=== PATIENT | female | born 1985 | race Caucasian/White ===

== ENCOUNTER → 2016-09-02 | Outpatient (REF) | payer OTHER, MEDICAID | LOC: M SFHCLERA 09:36 | PROVIDERS: ATTEND Nurse Practitioner Family | DX: J02.9 Acute pharyngitis, unspecified (principal) ==

== ENCOUNTER 2016-09-29 04:19 | Emergency (ER) | payer OTHER, MEDICAID ==
[~2016-09-29] VITALS: Ht 152.4 cm; Wt 49.9 kg
[2016-09-29] MEDS ORDERED: XANA2TAB2 PO (04:43)
[2016-09-29] MEDS ORDERED: PROZ20CA11 PO (04:43)
[2016-09-29] MEDS ORDERED: IBUPROFEN 800 MG TAB PO ONE (05:15)
--- NOTE | 2016-09-29 05:40 | REPUSA ---
CLINICAL HISTORY: Head trauma. TECHNIQUE: Multiple axial brain CT scan sections were obtained from base to vertex without contrast a dministration. COMMENTS: There is no evidence of skull fracture. The study shows normal configuration of sella turcica. There are no intra or extra-axial collections. There is no mass effect or midline shift. There is no evidence of hematoma formation. No hydrocephal us is present. No abnormal calcifications are noted. No significant abnormalities are seen either in the posterior fossa or supratentorial compartment. Chronic mucosal inflammatory changes of the right frontal sinus and right anterior ethmoid air cells. The sinuses and mastoid air cells are patent. Right frontal subgaleal soft tissue hematoma. IMPRESSION: Right frontal subgaleal soft tissue contusion. No evidence of acute intracranial pathology. No intracranial hemorrhage or skull fracture. Chronic sinusitis. Thank you for your kind referral of this patient.
--- NOTE | 2016-09-29 06:00 | REPUSA ---
HISTORY: Trauma. COMPARISON: Not provided. TECHNIQUE: Multiple thin section helically-acquired axially-displayed and helically acquired coronall y displayed computed tomographic images of the face are obtained from the mandible through the fronta l sinuses, with images obtained at soft tissue and bone window. 2D reformatted images were performed. FINDINGS: Right preseptal soft tissue hematoma. Normal bony mineralization. No fractures. Normal orbits. Mild chronic mucosal inflammatory changes of the maxillary sinuses and ethmoid air cells. Normal oral and nasal cavities. Normal infratemporal fossa and deep parapharyngeal spaces with normal muscles of mastication. Normal parotid and submandibular glands. IMPRESSION: Right preseptal soft tissue hematoma. No fracture. Thank you for your kind referral of this patient
[2016-09-29] MEDS ORDERED: IBUP80TA PO (06:20)
[2016-09-29 06:29] VITALS: BP 139/78
== END 2016-09-29 06:32 | disposition home or self-care (01) ==
LOC: EDBD 04:19 → M ED 06:07
DX: S00.81XA Abrasion of other part of head, initial encounter (principal); S00.83XA Contusion of other part of head, initial encounter; Y04.8XXA Assault by other bodily force, initial encounter; Y92.89 Other specified places as the place of occurrence of the external cause; Y93.89 Activity, other specified; Y99.8 Other external cause status; Z79.899 Other long term (current) drug therapy; Z88.1 Allergy status to other antibiotic agents; Z88.5 Allergy status to narcotic agent

== ENCOUNTER → 2018-01-29 | Outpatient (REF) | payer MEDICAID | LOC: M SFHCLERA 20:28 | DX: J02.9 Acute pharyngitis, unspecified (principal) ==

== ENCOUNTER → 2018-04-11 | Outpatient (REF) | LOC: M LAB REF 14:54 | DX: Z00.00 Encounter for general adult medical examination without abnormal findings (principal) ==

== ENCOUNTER → 2018-04-23 | Outpatient (CLI) | payer MEDICAID | LOC: M RAD 13:17 | DX: Z34.83 Encounter for supervision of other normal pregnancy, third trimester (principal); Z36.89 Encounter for other specified antenatal screening; Z3A.29 29 weeks gestation of pregnancy | CPT/HCPCS: 76820 ==

== ENCOUNTER → 2018-05-07 | Outpatient (CLI) | payer MEDICAID | LOC: M RAD 12:31 | DX: Z36.89 Encounter for other specified antenatal screening (principal); Z3A.31 31 weeks gestation of pregnancy | CPT/HCPCS: 76816 ==

== ENCOUNTER → 2018-05-28 | Outpatient (CLI) | payer SELFPAY, MEDICAID | LOC: M LDO 00:39 | DX: O26.893 Other specified pregnancy related conditions, third trimester (principal); O47.03 False labor before 37 completed weeks of gestation, third trimester; Z3A.35 35 weeks gestation of pregnancy | CPT/HCPCS: 59025 ==

== ENCOUNTER → 2018-06-05 | Outpatient (REF) | payer MEDICAID | LOC: M LAB REF 17:03 | DX: Z34.83 Encounter for supervision of other normal pregnancy, third trimester (principal) ==

== ENCOUNTER 2018-06-07 02:03 | Outpatient (CLI) | payer MEDICAID ==
[2018-06-07 03:31] LABS: AMPHETAMINES URINE REFLEX NEGATIVE (NEGATIVE); BARBITURATES URINE REFLEX NEGATIVE (NEGATIVE); CANNABINOIDS URINE REFLEX NEGATIVE (NEGATIVE); COCAINE METABOLITE URINE REFLE NEGATIVE (NEGATIVE); METHADONE URINE REFLEX NEGATIVE (NEGATIVE); OPIATES URINE REFLEX NEGATIVE (NEGATIVE); PHENCYCLIDINE URINE REFLEX NEGATIVE (NEGATIVE)
[2018-06-07 03:39] LABS: BENZODIAZEPINES URINE REFLEX PENDING CONFIRMATION (NEGATIVE)
[2018-06-11 00:39] LABS: Benzodiazepines Negative (Cutoff=300)
== END 2018-06-07 03:00 | disposition home or self-care (01) ==
LOC: M LDO 02:03
DX: O47.03 False labor before 37 completed weeks of gestation, third trimester (principal); Z3A.36 36 weeks gestation of pregnancy
CPT/HCPCS: 59025

== ENCOUNTER 2018-06-12 19:23 | Outpatient (CLI) | payer MEDICAID | END 2018-06-12 22:15 | disposition home or self-care (01) | LOC: M LDO 19:23 | DX: O47.1 False labor at or after 37 completed weeks of gestation (principal); Z3A.37 37 weeks gestation of pregnancy | CPT/HCPCS: 59025 ==

== ENCOUNTER 2018-06-22 14:47 | Inpatient (IN) | payer OTHER, MEDICAID ==
[2018-06-22 16:50] LABS: HEMOGLOBIN 9.8 g/dl (12.0-15.5); MEAN CORPUSCULAR HEMOGLOBIN 25.2 pg (27.0-33.0); MEAN CORPUSCULAR HGB CONC 31.6 g/dl (32.0-36.5); MEAN CORPUSCULAR VOLUME 79.7 fl (80.0-96.0); PLATELET COUNT, AUTOMATED 270 10^3/uL (150-450); RED BLOOD COUNT 3.89 10^6/uL (4.00-5.40); RED CELL DISTRIBUTION WIDTH 14.6 % (11.5-14.5)
[2018-06-22 16:55] LABS: AMPHETAMINES URINE REFLEX NEGATIVE (NEGATIVE); BARBITURATES URINE REFLEX NEGATIVE (NEGATIVE); CANNABINOIDS URINE REFLEX NEGATIVE (NEGATIVE); COCAINE METABOLITE URINE REFLE NEGATIVE (NEGATIVE); METHADONE URINE REFLEX NEGATIVE (NEGATIVE); OPIATES URINE REFLEX NEGATIVE (NEGATIVE); PHENCYCLIDINE URINE REFLEX NEGATIVE (NEGATIVE)
[2018-06-22] MEDS: LR 1,000 ML IV ×2 (16:56→18:05)
[2018-06-22 16:59] LABS: BENZODIAZEPINES URINE REFLEX PENDING CONFIRMATION (NEGATIVE)
[2018-06-22] MEDS ORDERED: FENTANYL 2MCG/ML ROPIVACAINE 0.2% IN 0.9% NACL 200ML IVBAG As Ordered (17:28)
[2018-06-22] MEDS: FENTANYL/ROPIVACAINE/NACL BAG 200 ML EPIDURAL (18:00)
[2018-06-22] MEDS: OXYTOCIN DRIP 30 UNITS in APPROPRIATE DILUENT 1 EA IV (18:21)
[2018-06-22] MEDS ORDERED: REFRIGERATOR IV KEYS XX (19:00)
[2018-06-22] MEDS ORDERED: ONDANSETRON 4MG/2ML VIAL (J2405) IV (19:00)
[2018-06-22] MEDS ORDERED: ePHEDrine SULFATE 25 MG/5 ML(5MG/ML) SYRINGE IV (19:00)
[2018-06-22] MEDS ORDERED: EPIDURAL/PCA KEYS XX (19:00)
[2018-06-22] MEDS ORDERED: NALOXONE INJ 0.4 MG/1 ML VIAL (J2310) IV (19:00)
[2018-06-22] MEDS ORDERED: EPIDURAL COMMENT XX (19:00)
[2018-06-22] MEDS ORDERED: LACTATED RINGER'S 1000 ML IV (19:00)
[2018-06-22] MEDS ORDERED: diphenhydrAMINE INJ 50MG/ML VIAL (J1200) IV (19:00)
[2018-06-22] MEDS: IBUPROFEN 800 MG TAB PO (23:58)
[2018-06-22] MEDS ORDERED: IBUPROFEN 800 MG TAB As Ordered (23:58)
[2018-06-23] MEDS: OXYTOCIN DRIP 30 UNITS in APPROPRIATE DILUENT 1 EA IV (02:11)
[2018-06-23] MEDS ORDERED: RHOGAM 300 MCG (1500 IU) INJ (J2790) IM (02:15)
[2018-06-23] MEDS ORDERED: ANUSOL HC CREAM 30GM TOP (02:15)
[2018-06-23] MEDS ORDERED: DIBUCAINE 1% OINTMENT 30GM TOP (02:15)
[2018-06-23] MEDS ORDERED: METHYLERGONOVINE MALEATE 0.2 MG TAB PO (02:15)
[2018-06-23] MEDS ORDERED: MEASLES,MUMPS,RUBELLA VACCINE INJ (MMR-II) (90707) SC (02:15)
[2018-06-23] MEDS: ACETAMINOPHEN 500 MG TAB PO (06:24)
[2018-06-23 06:56] LABS: ALT/SGPT 9 U/L (12-78); AST/SGOT 18 U/L (7-37); BILIRUBIN,TOTAL 0.3 MG/DL (0.2-1.0); CREATININE FOR GFR 0.52 MG/DL (0.55-1.30); GLOMERULAR FILTRATION RATE > 60.0 (>60); LDH LACTATE DEHYDROGENASE 182 U/L (84-246); URIC ACID 4.4 MG/DL (2.6-6.0)
[2018-06-23] MEDS: PRENATAL VITAMINS CHEWABLE TABLET PO (08:53)
[2018-06-23] MEDS: DOCUSATE SODIUM 100 MG CAP PO (11:37)
[2018-06-23] MEDS: IBUPROFEN 800 MG TAB PO (16:40)
[2018-06-24] MEDS: IBUPROFEN 800 MG TAB PO (00:15)
[2018-06-24] MEDS ORDERED: ADACEL/BOOSTRIX VACCINE (DIPHTH/PERTUSS/ACELL/TETANUS)0.5ML SYR (90715) IM (09:00)
[2018-06-24] MEDS: PRENATAL VITAMINS CHEWABLE TABLET PO (10:34)
[2018-06-27 00:29] LABS: Benzodiazepines Positive (.); GC OH-Alprazola 707 ng/mL (Cutoff=300); Nordiazipam Negative (Cutoff=300); OH-Alprazolam Positive (.)
== END 2018-06-24 15:10 | disposition home or self-care (01) | DRG 560 ==
LOC: M LDI 14:47 → M OBS 06-23 02:26
PROC: 10E0XZZ Delivery of Products of Conception, External Approach (ICD-10-PCS; principal; 2018-06-22)
PROC: 3E033VJ Introduction of Other Hormone into Peripheral Vein, Percutaneous Approach (ICD-10-PCS; 2018-06-22)
DX: O80 Encounter for full-term uncomplicated delivery (principal); Z37.0 Single live birth; Z3A.39 39 weeks gestation of pregnancy

== ENCOUNTER → 2018-09-27 | Outpatient (REF) | payer MEDICAID, OTHER ==
[~2018-09-27] MED LIST: ACET500T15 PO; GUMMCHW PO; IBUP-1114 PO; IBUP80TA PO; MAPA500T2 PO; MULTCAP PO; PRENTAB55 PO; PRENTAB9 PO; PROZ20CA11 PO; SUDA15LI2 PO; XANA2TAB2 PO; ZANTTAB PO
[2018-09-27 22:52] LABS: CHLAMYDIA DNA AMPLIFICATION NEGATIVE (NEGATIVE); GC DNA AMPLIFICATION NEGATIVE (NEGATIVE)
== END ==
LOC: M SFHCLERA 11:12
PROVIDERS: ATTEND Nurse Practitioner Family
DX: R30.0 Dysuria (principal)

== ENCOUNTER 2018-11-26 23:32 | Emergency (ER) | payer OTHER ==
[~2018-11-26] VITALS: Ht 152.4 cm; Wt 43.4 kg
[2018-11-26 23:32] VITALS: BP 147/95
[2018-11-27] MEDS ORDERED: ALPRAZolam 0.5 MG TAB PO ONE
== END 2018-11-27 00:44 | disposition home or self-care (01) ==
LOC: M ED 23:32
DX: Z76.0 Encounter for issue of repeat prescription (principal); F13.10 Sedative, hypnotic or anxiolytic abuse, uncomplicated; Z79.899 Other long term (current) drug therapy; Z88.1 Allergy status to other antibiotic agents; Z88.5 Allergy status to narcotic agent; F17.210 Nicotine dependence, cigarettes, uncomplicated

== ENCOUNTER 2018-11-27 17:31 | Emergency (ER) | payer OTHER ==
[~2018-11-27] VITALS: Ht 152.4 cm; Wt 42.1 kg
[2018-11-27 17:31] VITALS: BP 134/84
== END 2018-11-27 18:53 | disposition left against medical advice (07) ==
LOC: M ED 17:31
DX: F41.9 Anxiety disorder, unspecified (principal); Z53.21 Procedure and treatment not carried out due to patient leaving prior to being seen by health care provider

== ENCOUNTER 2019-02-25 11:03 | Emergency (ER) | payer OTHER ==
[~2019-02-25] VITALS: Ht 154.9 cm; Wt 47.4 kg
[~2019-02-25 11:03] MED LIST changes: -AZIT500T2 PO; -BUTA-198; -PREN29TA4 PO
[2019-02-25] MEDS ORDERED: PREN29TA4 PO (11:16)
[2019-02-25] MEDS ORDERED: BUTA-198 (11:16)
[2019-02-25] MEDS ORDERED: ALPRAZolam 0.5 MG TAB PO ONE (11:45)
[2019-02-25] MEDS ORDERED: AZITHROMYCIN 250 MG TAB PO ONE (11:45)
[2019-02-25] MEDS ORDERED: AZIT500T5 PO (12:01)
[2019-02-25] MEDS ORDERED: XANA2TAB2 PO (12:02)
[2019-02-25 12:07] VITALS: BP 111/63
[2019-04-14] MEDS ORDERED: XANA2TAB2 PO (12:37)
== END 2019-02-25 12:08 | disposition home or self-care (01) ==
LOC: M ED 11:03
DX: O99.712 Diseases of the skin and subcutaneous tissue complicating pregnancy, second trimester (principal); K04.7 Periapical abscess without sinus; O99.342 Other mental disorders complicating pregnancy, second trimester; F41.9 Anxiety disorder, unspecified; O99.322 Drug use complicating pregnancy, second trimester; F13.20 Sedative, hypnotic or anxiolytic dependence, uncomplicated; Z87.891 Personal history of nicotine dependence; Z3A.18 18 weeks gestation of pregnancy; Z88.5 Allergy status to narcotic agent; Z88.1 Allergy status to other antibiotic agents; Z79.899 Other long term (current) drug therapy

== ENCOUNTER → 2019-02-25 | Outpatient (CLI) | payer OTHER ==
[~2019-02-25] MED LIST changes: +AZIT500T2 PO; +BUTA-198; +PREN29TA4 PO; +XANA1TAB2 PO; +ZANT150T40 PO; -ZANTTAB PO
--- NOTE | 2019-02-26 04:38 | REP ---
Clinical: Anatomical evaluation. Comparison: None . Findings: Examination demonstrates a single live intrauterine in variable presentation. motion is identified by technologist. Placenta is noted posterior fundal and grade one without evidence for placenta previa or abruption. Placental venous lakes identified. Amniotic fluid volume is normal. Cervix measures 3.4 cm in length and appears closed. Nuchal cord cannot be excluded. Gestational age by LMP 18 weeks 3 days with WALLACE 07/26/2019 . Gestational age by current measurements 17 weeks 5 days with WALLACE 07/31/2019 . FHR equals 154 beats per minute. BPD 4.0 cm 18 weeks 1 day HC 14.3 cm 17 weeks 4 days AC 12.3 cm 18 weeks 0 days FL 2.4 cm 17 weeks 2 days HL 2.5 cm 17 weeks 5 days HC/AC ratio 1.16 Estimated weight 205 grams ( 21st percentile). Anatomical assessment demonstrates normal structures including cranium, cavum, cerebellum/posterior fossa, facial features, lungs, diaphragm, stomach, cord insertion, kidneys/bladder, and extremities. Limited evaluation of the heart/ventricular outflow tracts, three-vessel cord and spine noted along with small bilateral choroid plexus cysts Impression: 1. Single live intrauterine in variable presentation demonstrating appropriate interval growth. 2. Anatomical limitations as noted above warrants followup. 3. Nuchal cord cannot be excluded. 4. Placental venous lakes. Electronically Signed by Ted Farah MD 02/26/2019 04:29 A
== END ==
LOC: M RAD 15:59
PROVIDERS: ATTEND Advanced Practice Midwife
DX: Z34.82 Encounter for supervision of other normal pregnancy, second trimester (principal); O43.892 Other placental disorders, second trimester; Z3A.17 17 weeks gestation of pregnancy

== ENCOUNTER 2019-03-05 02:46 | Emergency (ER) | payer OTHER ==
[~2019-03-05] VITALS: Ht 154.9 cm; Wt 50.0 kg
[~2019-03-05 02:46] MED LIST changes: +AZIT500T2 PO; +BUTA-198; +PREN29TA4 PO
[2019-03-05 02:47] VITALS: BP 131/72
[2019-03-05] MEDS ORDERED: ALPRAZolam 0.5 MG TAB PO ONE (03:15)
== END 2019-03-05 03:49 | disposition home or self-care (01) ==
LOC: M ED 02:46
DX: O99.322 Drug use complicating pregnancy, second trimester (principal); O26.892 Other specified pregnancy related conditions, second trimester; O99.342 Other mental disorders complicating pregnancy, second trimester; Z3A.21 21 weeks gestation of pregnancy; O99.332 Smoking (tobacco) complicating pregnancy, second trimester; Z79.899 Other long term (current) drug therapy; Z88.1 Allergy status to other antibiotic agents; Z88.5 Allergy status to narcotic agent

== ENCOUNTER 2019-03-09 09:14 | Emergency (ER) | payer OTHER ==
[~2019-03-09] VITALS: Ht 152.4 cm; Wt 49.0 kg
[2019-03-09 09:15] VITALS: BP 129/77
[2019-03-09] MEDS ORDERED: BUTA-198 (09:23)
[2019-03-09] MEDS ORDERED: ALPRAZolam 0.5 MG TAB PO ONE (11:00)
== END 2019-03-09 11:25 | disposition home or self-care (01) ==
LOC: M ED 09:14
DX: O99.322 Drug use complicating pregnancy, second trimester (principal); F19.20 Other psychoactive substance dependence, uncomplicated; O99.342 Other mental disorders complicating pregnancy, second trimester; F41.9 Anxiety disorder, unspecified; O99.512 Diseases of the respiratory system complicating pregnancy, second trimester; J45.909 Unspecified asthma, uncomplicated; O09.292 Supervision of pregnancy with other poor reproductive or obstetric history, second trimester; Z3A.21 21 weeks gestation of pregnancy; Z79.899 Other long term (current) drug therapy; Z87.891 Personal history of nicotine dependence; Z87.42 Personal history of other diseases of the female genital tract; Z88.1 Allergy status to other antibiotic agents; Z88.5 Allergy status to narcotic agent

== ENCOUNTER → 2019-03-11 | Outpatient (CLI) | payer OTHER ==
--- NOTE | 2019-03-11 18:12 | REP ---
HISTORY: Followup anatomy. COMPARISON: Prior examination failed to identify four chamber heart, ventricular outflow tracts, three vessel umbilical cord, and spine. In addition, small bilateral choroid plexus cysts were identified on that prior exam. Multiple ultrasonographic images of the gravid uterus show a single living intrauterine gestation in the zandra breech presentation. Doppler interrogation of the heart shows a heart rate of 153 beats per minute. The placenta is posterior, fundal and not low lying. The cervix measures 3.7 cm in length and is closed. The subjective amniotic fluid volume is within normal limits. Evaluation of the maternal adnexal spaces showed no abnormalities. A persistent choroid plexus cyst was seen in the left lateral ventricle. Both right and left ventricular outflow tracts were seen as normal today. A normal three vessel umbilical cord was identified. The spine was seen to be within normal limits. Four chamber heart view was still suboptimal in that an intracardiac echogenic focus was seen in the left ventricle, possibly reflecting chordae tendineae. BPD 4.7 cm = 20 weeks 2 days HC 17.1 cm = 19 weeks 5 days AC 14.1 cm = 19 weeks 4 days FL 3.0 cm = 19 weeks 3 days The estimated weight is 296 grams which is at the 17th percentile for a 20 week 3 day gestational age. IMPRESSION: Single living intrauterine gestation as described above with an estimated gestational age of 19 weeks 5 days via composite criteria and an estimated date of delivery of 07/31/2019 by today's exam. No anomalies were detected, however, I recommend a followup examination for the four chamber heart and choroid plexus cyst as described above. Electronically Signed by Víctor Villeda DO 03/12/2019 10:52 A
== END ==
LOC: M RAD 14:08
PROVIDERS: ATTEND Specialist
DX: O99.342 Other mental disorders complicating pregnancy, second trimester (principal); Z3A.19 19 weeks gestation of pregnancy

== ENCOUNTER 2019-04-11 12:10 | Outpatient (CLI) | payer OTHER ==
[~2019-04-11] VITALS: Ht 152.4 cm; Wt 48.0 kg
[2019-04-11 12:27] VITALS: BP 116/59
[2019-04-11 13:56] LABS: AMPHETAMINES URINE REFLEX NEGATIVE (NEGATIVE); BARBITURATES URINE REFLEX NEGATIVE (NEGATIVE); BENZODIAZEPINES URINE REFLEX PENDING CONFIRMATION (NEGATIVE); CANNABINOIDS URINE REFLEX NEGATIVE (NEGATIVE); COCAINE METABOLITE URINE REFLE NEGATIVE (NEGATIVE); METHADONE URINE REFLEX NEGATIVE (NEGATIVE); OPIATES URINE REFLEX NEGATIVE (NEGATIVE); PHENCYCLIDINE URINE REFLEX NEGATIVE (NEGATIVE)
[2019-04-11 14:00] VITALS: BP 111/58
[2019-04-14] MEDS ORDERED: XANA2TAB2 PO (12:37)
[2019-04-16 14:11] LABS: Benzodiazepines Positive (.); GC OH-Alprazola 404 ng/mL (Cutoff=300); OH-Alprazolam Positive (.)
== END 2019-04-11 14:10 | disposition home or self-care (01) ==
LOC: M LDO 12:10
PROVIDERS: ATTEND Specialist
DX: O26.892 Other specified pregnancy related conditions, second trimester (principal); R10.2 Pelvic and perineal pain; Z3A.23 23 weeks gestation of pregnancy
CPT/HCPCS: 80307; G0480

== ENCOUNTER → 2019-04-15 | Outpatient (CLI) | payer OTHER ==
--- NOTE | 2019-04-16 02:36 | REP ---
Clinical: Anatomical evaluation. Comparison: 03/11/2019 . Findings: Examination demonstrates a single live intrauterine in cephalic presentation. motion is identified by technologist. Placenta is noted posterior and grade one without evidence for placenta previa or abruption. Amniotic fluid volume is normal. Cervix measures 3.3 cm in length and appears closed. No evidence for nuchal cord. Gestational age by LMP 25 weeks 3 days with WALLACE 07/26/2019 . Gestational age by current measurements 24 weeks 1 day with WALLACE at 08/04/2019 . FHR equals 138 beats per minute. Estimated weight 635 grams ( 5th percentile). Anatomical assessment demonstrates normal structures including cranium, choroid plexus, cavum, cerebellum/posterior fossa, facial features, lungs, four-chamber heart/ventricular outflow tracts, diaphragm, stomach, cord insertion/three-vessel cord, kidneys/bladder, spine, and extremities. Incidental echogenic focus in the left cardiac ventricle likely prominent chordae tendineae. Impression: 1. Single live intrauterine in cephalic presentation. While estimated weight is at 5th percentile based on age by LMP, there has been appropriate interval growth between first ultrasound and current examination. 2. Anatomical assessment is essentially complete and normal. Echogenic focus within the left cardiac ventricle likely prominent chordae tendineae. Electronically Signed by Ted Farah MD 04/16/2019 02:27 A
== END ==
LOC: M RAD 14:24
PROVIDERS: ATTEND Specialist
DX: Z34.82 Encounter for supervision of other normal pregnancy, second trimester (principal)

== ENCOUNTER → 2019-05-07 | Outpatient (CLI) | payer OTHER ==
[~2019-05-07] MED LIST changes: -AZIT500T2 PO; +AZIT500T5 PO
--- NOTE | 2019-05-08 04:41 | REP ---
Clinical: Growth evaluation. Comparison: 04/15/2019 . Findings: Examination demonstrates a single live intrauterine in breech presentation. motion is identified by technologist. Placenta is noted posterior/fundal and grade I without evidence for placenta previa or abruption. Placental cord insertion approximately 1.6 cm from the placental tip. Amniotic fluid volume is normal. Cervix measures 4.2 cm in length and appears closed. No evidence for nuchal cord. Gestational age by LMP 28 weeks 4 days with WALLACE 07/26/2019 . Gestational age by current measurements 26 weeks 4 days with WALLACE 08/09/2019 . FHR equals 147 beats per minute. BPD 6.4 cm 25 week 6 days (less than 5th percentile) HC 25.0 cm 27 weeks 1 day AC 24.3 cm 28 weeks 4 days FL 4.8 cm 26 weeks 1 day (less than 5th percentile) HL 4.3 cm 26 weeks 0 days HC/AC ratio 1.03 Estimated weight 1071 grams ( 15th percentile). Amniotic fluid index: 11.2 cm (9.3 - 23.0) Umbilical cord SD ratio: 4.67 (2.54 - 3.70) Impression: 1. Single live intrauterine in breech presentation demonstrating slightly less than expected growth. 2. As above. Electronically Signed by Ted Farah MD 05/08/2019 04:32 A
== END ==
LOC: M RAD 09:53
PROVIDERS: ATTEND Specialist
DX: O36.59 Maternal care for other known or suspected poor fetal growth (principal); O32.1XX0 Maternal care for breech presentation, not applicable or unspecified; Z3A.28 28 weeks gestation of pregnancy

== ENCOUNTER 2019-06-15 14:20 | Emergency (ER) | payer OTHER ==
[~2019-06-15] VITALS: Ht 154.9 cm; Wt 54.5 kg
[2019-06-15 14:20] VITALS: BP 115/78
== END 2019-06-15 15:29 | disposition left against medical advice (07) ==
LOC: M ED 14:20
DX: Z53.21 Procedure and treatment not carried out due to patient leaving prior to being seen by health care provider (principal)

== ENCOUNTER → 2019-06-24 | Outpatient (CLI) | payer OTHER ==
--- NOTE | 2019-06-24 10:01 | REP ---
Clinical: Growth evaluation. Comparison: 05/07/2019 . Findings: Examination demonstrates a single live intrauterine in cephalic presentation. motion is identified by technologist. Placenta is noted posterior - left lateral and grade zero without evidence for placenta previa or abruption. Amniotic fluid volume is normal. Cervix appears closed. No evidence for nuchal cord. Gestational age by LMP 35 weeks 3 days with WALLACE 07/26/2019 . Gestational age by current measurements 32 weeks 2 days with WALLACE 08/17/2019 . FHR equals 126 beats per minute. BPD 8.2 cm 32 weeks 6 days HC 29.8 cm 33 weeks 0 days AC 27.5 cm 31 weeks 4 days FL 6.3 cm 32 weeks 3 days HL 5.4 cm 31 weeks 4 days HC/AC ratio 1.08 Estimated weight 1896 grams (<3 percentile). Amniotic fluid index: 11.1 cm (7.8 - 24.9) Umbilical cord SD ratio: 2.39 (2.00 - 3.00). Impression: Single live intrauterine in cephalic presentation demonstrating less than expected interval growth. Electronically Signed by Ted Farah MD 06/24/2019 09:52 A
== END ==
LOC: M RAD 08:49
PROVIDERS: ATTEND Specialist
DX: O36.5931 Maternal care for other known or suspected poor fetal growth, third trimester, fetus 1 (principal); Z3A.32 32 weeks gestation of pregnancy

== ENCOUNTER → 2019-07-01 | Outpatient (REF) | payer OTHER, MEDICAID | LOC: M SFHCWAGY 17:13 | PROVIDERS: ATTEND Specialist | DX: Z36.85 Encounter for antenatal screening for Streptococcus B (principal) ==

== ENCOUNTER 2019-07-17 12:38 | Inpatient (IN) | payer OTHER, MEDICAID ==
[2019-07-17] VITALS (23 sets, daily range): BP systolic 118–139; BP diastolic 65–93
[~2019-07-17] VITALS: Ht 154.9 cm; Wt 57.7 kg
[2019-07-17] MEDS ORDERED: ZANT150T40 PO (13:00)
[2019-07-17] MEDS ORDERED: PROZ10CA7 PO (13:00)
[2019-07-17] MEDS ORDERED: LR 1,000 ML IV SCH (13:20)
[2019-07-17] MEDS ORDERED: LACTATED RINGER'S 1000 ML IV STA (13:20)
[2019-07-17] MEDS ORDERED: PENICILLIN G POTASSIUM IV 5 MU in D5W MINI-BAG PLUS 100 ML IV STA (13:20)
[2019-07-17] MEDS ORDERED: VANCOMYCIN HCL 1,000 MG, VIAL MATE ADAPTER 1 EACH in D5W 250 ML IV SCH (14:15)
[2019-07-17] MEDS ORDERED: OXYTOCIN DRIP 30 UNITS in IV 1 EA IV SCH (14:15)
[2019-07-17 14:24] LABS: BASO # 0.1 10^3/uL (0.0-0.2); EOS # 0.2 10^3/uL (0.0-0.5); EOS % 3.2 % (0.0-3.0); HEMATOCRIT 33.7 % (36.0-47.0); HEMOGLOBIN 10.7 g/dl (12.0-15.5); LYMPH # 1.5 10^3/uL (1.5-5.0); LYMPH % 23.6 % (24.0-44.0); MEAN CORPUSCULAR HEMOGLOBIN 25.8 pg (27.0-33.0); MEAN CORPUSCULAR HGB CONC 31.8 g/dl (32.0-36.5); MEAN CORPUSCULAR VOLUME 81.4 fl (80.0-96.0); MONO # 0.4 10^3/uL (0.0-0.8); NEUTROPHILS # 4.1 10^3/uL (1.5-8.5); NEUTROPHILS % 64.9 % (36.0-66.0); PLATELET COUNT, AUTOMATED 264 10^3/uL (150-450); RED BLOOD COUNT 4.14 10^6/uL (4.00-5.40); WHITE BLOOD COUNT 6.3 10^3/uL (4.0-10.0)
[2019-07-17] MEDS ORDERED: FENTANYL 2MCG/ML ROPIVACAINE 0.2% IN 0.9% NACL 100ML IVBAG As Ordered ONE (15:06)
[2019-07-17 15:27] LABS: AMPHETAMINES URINE REFLEX NEGATIVE (NEGATIVE); BARBITURATES URINE REFLEX NEGATIVE (NEGATIVE); CANNABINOIDS URINE REFLEX NEGATIVE (NEGATIVE); COCAINE METABOLITE URINE REFLE NEGATIVE (NEGATIVE); METHADONE URINE REFLEX NEGATIVE (NEGATIVE); OPIATES URINE REFLEX NEGATIVE (NEGATIVE); PHENCYCLIDINE URINE REFLEX NEGATIVE (NEGATIVE)
[2019-07-17 15:29] LABS: BENZODIAZEPINES URINE REFLEX PENDING CONFIRMATION (NEGATIVE)
[2019-07-17 15:38] LABS: HEPATITIS C VIRUS ABY INDEX 0.2 INDEX (<0.8); HIV 1&2 SCREEN CENTAUR NEGATIVE (NEGATIVE); RUBELLA IgG QUALITATIVE IMMUNE (IMMUNE)
[2019-07-17] MEDS ORDERED: LACTATED RINGER'S 1000 ML IV PRN (16:00)
[2019-07-17] MEDS ORDERED: EPIDURAL/PCA KEYS XX PRN (16:00)
[2019-07-17] MEDS ORDERED: diphenhydrAMINE INJ 50MG/ML VIAL (J1200) IV PRN (16:00)
[2019-07-17] MEDS ORDERED: ePHEDrine SULFATE 25 MG/5 ML(5MG/ML) SYRINGE IV PRN (16:00)
[2019-07-17] MEDS ORDERED: NALOXONE INJ 0.4 MG/1 ML VIAL (J2310) IV PRN (16:00)
[2019-07-17] MEDS ORDERED: EPIDURAL COMMENT XX SCH (16:00)
[2019-07-17] MEDS ORDERED: REFRIGERATOR IV KEYS XX PRN (16:00)
[2019-07-17] MEDS ORDERED: FENTANYL/ROPIVACAINE/NACL BAG 100 ML EPIDURAL SCH (16:00)
[2019-07-17] MEDS ORDERED: ONDANSETRON 4MG/2ML VIAL (J2405) IV PRN ×2 (16:00→20:30)
[2019-07-17 16:39] LABS: CHLAMYDIA DNA AMPLIFICATION NEGATIVE (NEGATIVE); GC DNA AMPLIFICATION NEGATIVE (NEGATIVE)
[2019-07-17] MEDS ORDERED: PENICILLIN G POTASSIUM IV 2.5 MU in IV 1 EA IV SCH (17:30)
[2019-07-17] MEDS ORDERED: DOCUSATE SODIUM 100 MG CAP PO PRN (20:30)
[2019-07-17] MEDS ORDERED: IBUPROFEN 600 MG TAB PO PRN (20:30)
[2019-07-17] MEDS ORDERED: OXYTOCIN DRIP 30 UNITS in IV 1 EA IV ONE (20:30)
[2019-07-17] MEDS ORDERED: ACETAMINOPHEN 500 MG TAB PO PRN (20:30)
[2019-07-17] MEDS ORDERED: ACETAMINOPHEN TAB 650MG DOSE (2X325MG) PO PRN (20:30)
[2019-07-17] MEDS ORDERED: RHOGAM 300 MCG (1500 IU) INJ (J2790) IM SCH (20:30)
[2019-07-17] MEDS ORDERED: DIBUCAINE 1% OINTMENT 30GM TOP PRN (20:30)
[2019-07-17] MEDS ORDERED: METHYLERGONOVINE MALEATE 0.2 MG TAB PO PRN (20:30)
[2019-07-17] MEDS ORDERED: MEASLES,MUMPS,RUBELLA VACCINE INJ (MMR-II) (90707) SC SCH (20:30)
[2019-07-17] MEDS ORDERED: **PENDING PCN ENTRY XX SCH (21:00)
[2019-07-17] MEDS: IBUPROFEN 800 MG TAB PO PRN (22:56)
[2019-07-17] MEDS ORDERED: FLUoxetine 10 MG CAP PO ONE (23:00)
[2019-07-17] MEDS ORDERED: ALPRAZolam 0.25 MG TAB PO ONE (23:15)
[2019-07-18 05:51] VITALS: BP 124/58
--- NOTE | 2019-07-18 07:09 | DN ---
DATE: 07/17/2019 PREDELIVERY DIAGNOSIS: 37-2/7 weeks gestation, intrauterine growth restriction (IUGR), induction. POSTDELIVERY DIAGNOSIS: Delivered. PROCEDURE: Spontaneous vaginal delivery. JUNIOR COPYWRITER: Dr. Tadeo Nieves. ANESTHESIA: Epidural. ESTIMATED BLOOD LOSS: 300 mL. FINDINGS: 5 pound 1 ounce female with scores 8 and 9. DELIVERY SUMMARY: After a short second stage, patient had spontaneous delivery of a 5 pound 1 ounce female with scores 8 and 9 under epidural anesthesia. There was no nuchal cord. The shoulders were delivered with ease. The was handed to mother and cried immediately. The cord was doubly clamped and cut. Placenta delivered spontaneously and appeared to be intact. The patient received intravenous (IV) Pitocin immediately after delivering the placenta. There were no vaginal lacerations present. Sponge counts were correct.
[2019-07-18] MEDS ORDERED: ALPRAZolam 0.25 MG TAB PO SCH (09:00)
[2019-07-18] MEDS ORDERED: ADACEL/BOOSTRIX VACCINE (DIPHTH/PERTUSS/ACELL/TETANUS)0.5ML SYR (90715) IM ONE (09:00)
[2019-07-18] MEDS: ALPRAZolam 0.5 MG TAB PO SCH ×2 (09:00→20:24)
[2019-07-18] MEDS ORDERED: ALPRAZolam 0.5 MG TAB PO SCH (09:38)
[2019-07-18] MEDS: PRENATAL VITAMINS CHEWABLE TABLET PO SCH (10:06)
[2019-07-18] MEDS: IBUPROFEN 800 MG TAB PO PRN ×2 (10:28→19:36)
[2019-07-18 18:11] VITALS: BP 139/65
[2019-07-18] MEDS ORDERED: FLUoxetine 10 MG CAP PO SCH (21:00)
[2019-07-19 06:00] VITALS: BP 115/69
[2019-07-19] MEDS: IBUPROFEN 800 MG TAB PO PRN (06:07)
[2019-07-19] MEDS: PRENATAL VITAMINS CHEWABLE TABLET PO SCH (08:51)
[2019-07-19] MEDS: ALPRAZolam 0.5 MG TAB PO SCH (08:51)
== END 2019-07-19 16:00 | disposition home or self-care (01) | DRG 560 ==
LOC: M LDI 12:38 → EEVIPCON 12:38 → M OBS 22:30
PROVIDERS: ADMIT Obstetrics & Gynecology; ATTEND Obstetrics & Gynecology
PROC: 10E0XZZ Delivery of Products of Conception, External Approach (ICD-10-PCS; principal; 2019-07-17)
DX: O80 Encounter for full-term uncomplicated delivery (principal); Z37.0 Single live birth; Z3A.37 37 weeks gestation of pregnancy

== ENCOUNTER → 2019-09-01 | Outpatient (REF) | payer OTHER, MEDICAID ==
[~2019-09-01] MED LIST changes: +PROZ10CA7 PO
[2019-09-01 15:10] LABS: CHLAMYDIA DNA AMPLIFICATION NEGATIVE (NEGATIVE); GC DNA AMPLIFICATION NEGATIVE (NEGATIVE)
== END ==
LOC: M SFHCWAGY 12:21
PROVIDERS: ATTEND Advanced Practice Midwife
DX: Z12.4 Encounter for screening for malignant neoplasm of cervix (principal); Z11.3 Encounter for screening for infections with a predominantly sexual mode of transmission; R87.615 Unsatisfactory cytologic smear of cervix

== ENCOUNTER 2019-10-09 22:33 | Emergency (ER) | payer MEDICAID, OTHER ==
[2019-10-09 22:34] VITALS: BP 130/77
[2019-10-09] MEDS ORDERED: FLUO10CA15 PO ×2 (22:48→23:32)
[2019-10-09] MEDS ORDERED: BRONCHW PO (22:48)
[2019-10-09] MEDS ORDERED: ADDE20TA PO (22:48)
[2019-10-09] MEDS ORDERED: ALPRAZolam 0.5 MG TAB PO ONE (23:30)
[2019-10-09] MEDS ORDERED: XANA2TAB2 PO (23:32)
[2019-10-09] MEDS ORDERED: AMPH1CAP16 PO (23:32)
[2019-10-09] MEDS ORDERED: FLUoxetine 10 MG CAP PO ONE (23:45)
[2019-10-10] MEDS ORDERED: ADDE20TA PO (17:24)
--- NOTE | 2019-10-11 06:38 | ECGEPIP ---
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
== END 2019-10-09 23:49 | disposition home or self-care (01) ==
LOC: M ED 22:33
DX: Z76.0 Encounter for issue of repeat prescription (principal); F41.9 Anxiety disorder, unspecified; F90.9 Attention-deficit hyperactivity disorder, unspecified type; R00.0 Tachycardia, unspecified; Z79.899 Other long term (current) drug therapy; Z88.1 Allergy status to other antibiotic agents; Z88.5 Allergy status to narcotic agent; F17.210 Nicotine dependence, cigarettes, uncomplicated

== ENCOUNTER 2019-10-20 11:59 | Emergency (ER) | payer OTHER ==
[~2019-10-20] VITALS: Ht 152.4 cm; Wt 47.4 kg
[~2019-10-20 11:59] MED LIST changes: +ADDE20TA PO; +AMPH1CAP16 PO; +BRONCHW PO; +FLUO10CA15 PO
[2019-10-20 12:59] VITALS: BP 127/80
[2019-10-20] MEDS ORDERED: ALPRAZolam 0.5 MG TAB PO ONE (13:00)
[2019-10-20] MEDS ORDERED: CLEO300C2 PO (13:06)
== END 2019-10-20 13:04 | disposition home or self-care (01) ==
LOC: M ED 11:59
DX: Z76.0 Encounter for issue of repeat prescription (principal); F41.9 Anxiety disorder, unspecified; K02.9 Dental caries, unspecified; Z79.899 Other long term (current) drug therapy; Z88.5 Allergy status to narcotic agent; Z88.1 Allergy status to other antibiotic agents

== ENCOUNTER 2019-11-13 22:19 | Emergency (ER) | payer OTHER ==
[~2019-11-13] VITALS: Ht 154.9 cm; Wt 46.8 kg
[~2019-11-13 22:19] MED LIST changes: +CLEO300C2 PO
[2019-11-13] MEDS ORDERED: ADDERALL 5 MG TAB PO ONE (23:15)
[2019-11-13] MEDS ORDERED: ALPRAZolam 0.5 MG TAB PO ONE (23:15)
[2019-11-13 23:24] VITALS: BP 130/68
== END 2019-11-13 23:26 | disposition home or self-care (01) ==
LOC: M ED 22:19
DX: F15.280 Other stimulant dependence with stimulant-induced anxiety disorder (principal); F17.200 Nicotine dependence, unspecified, uncomplicated; Z88.6 Allergy status to analgesic agent; Z88.1 Allergy status to other antibiotic agents

== ENCOUNTER 2020-01-15 04:50 | Emergency (ER) | payer OTHER ==
[~2020-01-15] VITALS: Ht 165.1 cm; Wt 45.5 kg
[2020-01-15 04:51] VITALS: BP 130/79
[2020-01-15] MEDS ORDERED: ALPRAZolam 0.5 MG TAB PO ONE (05:15)
== END 2020-01-15 05:25 | disposition home or self-care (01) ==
LOC: M ED 04:50
DX: Z76.0 Encounter for issue of repeat prescription (principal); F15.20 Other stimulant dependence, uncomplicated; F41.9 Anxiety disorder, unspecified; Z79.899 Other long term (current) drug therapy; Z88.1 Allergy status to other antibiotic agents; Z88.5 Allergy status to narcotic agent

== ENCOUNTER 2020-02-20 13:05 | Emergency (ER) | payer OTHER ==
[~2020-02-20 13:05] MED LIST changes: -FLUO10CA15 PO; +FLUO10CA16 PO
[2020-02-20] MEDS ORDERED: BOOSTRIX/ADACEL VACCINE (DIPHTH/PERTUSS/ACELL/TETANUS) 0.5ML SYR As Ordered ONE (13:38)
[2020-02-20] MEDS ORDERED: IBUPROFEN 600MG TAB As Ordered ONE (13:38)
[2020-02-20] MEDS ORDERED: ISOVUE-370 76% 100ML VIAL As Ordered ONE (14:53)
[2020-02-20] MEDS ORDERED: LIDOCAINE 1% MDV 20ML VIAL ONE (15:25)
[2020-02-20] MEDS ORDERED: CIPROFLOXACIN 500MG TABLET ONE (16:07)
[2020-03-27 20:22] LABS: APPEARANCE, URINE CLOUDY (CLEAR); BACTERIA, URINE AUTO 1+ (NEGATIVE); BILIRUBIN, URINE AUTO NEGATIVE (NEGATIVE); BLOOD, URINE BLOOD 1+ (NEGATIVE); COLOR, URINE YELLOW (YELLOW); GLUCOSE, URINE (UA) AUTO NEGATIVE (NEGATIVE); KETONE, URINE AUTO NEGATIVE (NEGATIVE); LEUKOCYTE ESTERASE, URINE AUTO 2+ (NEGATIVE); MUCUS, URINE SMALL (NEGATIVE); NITRITE, URINE AUTO NEGATIVE (NEGATIVE); PROTEIN, URINE AUTO NEGATIVE (NEGATIVE); RBC, URINE AUTO 7 /HPF (0-3); SPECIFIC GRAVITY URINE AUTO 1.012 (1.002-1.035); SQUAMOUS EPITHELIAL CELL UR AU 4 /HPF (0-6); UROBILINOGEN, URINE AUTO 0.2 mg/dL (0.0-2.0); WBC, URINE AUTO 98 /HPF (0-3)
[2020-03-27 21:36] LABS: BASO % 0.7 % (0.0-1.0); EOS # 0.1 10^3/uL (0.0-0.5); EOS % 2.4 % (0.0-3.0); HEMATOCRIT 38.3 % (36.0-47.0); HEMOGLOBIN 12.3 g/dl (12.0-15.5); LYMPH # 1.2 10^3/uL (1.5-5.0); LYMPH % 21.2 % (24.0-44.0); MEAN CORPUSCULAR HEMOGLOBIN 27.8 pg (27.0-33.0); MEAN CORPUSCULAR HGB CONC 32.1 g/dl (32.0-36.5); MEAN CORPUSCULAR VOLUME 86.5 fl (80.0-96.0); MONO # 0.4 10^3/uL (0.0-0.8); MONO % 6.8 % (0.0-5.0); NEUTROPHILS # 3.7 10^3/uL (1.5-8.5); NEUTROPHILS % 68.5 % (36.0-66.0); PLATELET COUNT, AUTOMATED 339 10^3/uL (150-450); RED BLOOD COUNT 4.43 10^6/uL (4.00-5.40); WHITE BLOOD COUNT 5.5 10^3/uL (4.0-10.0)
[2020-05-01 14:16] LABS: AMPHETAMINES LEVEL URINE POSITIVE (NEGATIVE); BARBITURATES URINE NEGATIVE (NEGATIVE); BENZODIAZEPINES URINE POSITIVE (NEGATIVE); CANNABINOIDS URINE NEGATIVE (NEGATIVE); COCAINE METABOLITE URINE NEGATIVE (NEGATIVE); METHADONE URINE NEGATIVE (NEGATIVE); OPIATES URINE NEGATIVE (NEGATIVE); PHENCYCLIDINE URINE NEGATIVE (NEGATIVE)
[2020-05-01 14:17] LABS: BLOOD UREA NITROGEN 10 MG/DL (7-18); CALCIUM LEVEL 8.4 MG/DL (8.5-10.1); CARBON DIOXIDE LEVEL 26 MEQ/L (21-32); CHLORIDE LEVEL 111 MEQ/L (98-107); CREATININE FOR GFR 0.85 MG/DL (0.55-1.30); GLOMERULAR FILTRATION RATE > 60.0 (>60); GLUCOSE, FASTING 95 MG/DL (70-100); HCG, SERUM QUALITATIVE NEGATIVE (NEGATIVE); POTASSIUM SERUM 3.6 MEQ/L (3.5-5.1); SODIUM LEVEL 144 MEQ/L (136-145)
== END 2020-02-20 17:15 | disposition home or self-care (01) ==
LOC: M ED 13:05
DX: S81.011A Laceration without foreign body, right knee, initial encounter (principal); T07.XXXA Unspecified multiple injuries, initial encounter; W17.81XA Fall down embankment (hill), initial encounter; Y92.89 Other specified places as the place of occurrence of the external cause; F41.9 Anxiety disorder, unspecified; F43.10 Post-traumatic stress disorder, unspecified; F90.9 Attention-deficit hyperactivity disorder, unspecified type; Z79.899 Other long term (current) drug therapy; Z88.5 Allergy status to narcotic agent
CPT/HCPCS: 12001; 36415; 70450; 71046; 71260; 72125; 72190; 73564; 73630; 74177; 80048; 80307; 81001; 84703; 85025; 87088; 87186; 90471; 90715; 99283; Q9967

== ENCOUNTER → 2020-02-22 | Emergency (ER) | payer OTHER ==
[~2020-02-22] MED LIST changes: +LORazepam 1 MG TAB ONE
== END | disposition home or self-care (01) ==
LOC: M ED 23:14
DX: Z76.0 Encounter for issue of repeat prescription (principal); F41.1 Generalized anxiety disorder; I95.9 Hypotension, unspecified; F43.10 Post-traumatic stress disorder, unspecified; Z79.899 Other long term (current) drug therapy; F17.210 Nicotine dependence, cigarettes, uncomplicated

== ENCOUNTER 2020-03-14 22:18 | Emergency (ER) | payer OTHER ==
[~2020-03-14] VITALS: Ht 152.4 cm; Wt 45.5 kg
[~2020-03-14 22:18] MED LIST changes: -LORazepam 1 MG TAB ONE
[2020-03-14] MEDS ORDERED: XANA2TAB2 PO (23:30)
[2020-03-14] MEDS ORDERED: ALPRAZolam 0.5 MG TAB PO ONE (23:45)
[2020-03-15 00:25] VITALS: BP 111/58
== END 2020-03-15 00:27 | disposition home or self-care (01) ==
LOC: M ED 22:18
DX: F15.20 Other stimulant dependence, uncomplicated (principal); F41.9 Anxiety disorder, unspecified; Z79.899 Other long term (current) drug therapy; Z88.1 Allergy status to other antibiotic agents; Z88.5 Allergy status to narcotic agent

== ENCOUNTER 2020-05-15 10:14 | Emergency (ER) | payer OTHER ==
[~2020-05-15] VITALS: Ht 152.4 cm; Wt 42.2 kg
[2020-05-15 10:45] LABS: HEMATOCRIT 43.1 % (36.0-47.0); HEMOGLOBIN 13.2 g/dl (12.0-15.5); MEAN CORPUSCULAR HGB CONC 30.6 g/dl (32.0-36.5); MEAN CORPUSCULAR VOLUME 88.3 fl (80.0-96.0); PLATELET COUNT, AUTOMATED 329 10^3/uL (150-450); RED BLOOD COUNT 4.88 10^6/uL (4.00-5.40); WHITE BLOOD COUNT 4.1 10^3/uL (4.0-10.0)
[2020-05-15] MEDS ORDERED: NS 1,000 ML IV ONE (10:45)
[2020-05-15] MEDS ORDERED: ALPRAZolam 0.5 MG TAB PO ONE (10:45)
[2020-05-15 11:09] LABS: HCG, SERUM QUALITATIVE NEGATIVE (NEGATIVE)
[2020-05-15 11:15] LABS: ACETAMINOPHEN LEVEL < 2.0 UG/ML (10.0-30.0); ALBUMIN 3.6 GM/DL (3.2-5.2); ALT/SGPT 14 U/L (12-78); BILIRUBIN,DIRECT < 0.1 MG/DL (0.0-0.2); BILIRUBIN,TOTAL 0.3 MG/DL (0.2-1.0); BLOOD UREA NITROGEN 13 MG/DL (7-18); CARBON DIOXIDE LEVEL 29 MEQ/L (21-32); CHLORIDE LEVEL 108 MEQ/L (98-107); CREATININE FOR GFR 0.75 MG/DL (0.55-1.30); ETHYL ALCOHOL (ETHANOL) < 0.003 % (0.000-0.010); GLOMERULAR FILTRATION RATE > 60.0 (>60); GLUCOSE, FASTING 94 MG/DL (70-100); POTASSIUM SERUM 3.7 MEQ/L (3.5-5.1); SALICYLATE LEVEL < 1.7 MG/DL (5.0-30.0); SODIUM LEVEL 141 MEQ/L (136-145); TOTAL PROTEIN 7.2 GM/DL (6.4-8.2)
[2020-05-15] MEDS ORDERED: XANA2TAB2 PO (12:10)
[2020-05-15 12:13] LABS: AMPHETAMINES LEVEL URINE POSITIVE (NEGATIVE); BARBITURATES URINE NEGATIVE (NEGATIVE); BENZODIAZEPINES URINE POSITIVE (NEGATIVE); CANNABINOIDS URINE NEGATIVE (NEGATIVE); COCAINE METABOLITE URINE NEGATIVE (NEGATIVE); METHADONE URINE NEGATIVE (NEGATIVE); OPIATES URINE NEGATIVE (NEGATIVE); PHENCYCLIDINE URINE NEGATIVE (NEGATIVE)
[2020-05-15 12:15] VITALS: BP 118/65
--- NOTE | 2020-05-17 08:58 | ECGEPIP ---
[facility] - ED Test Date: 2020-05-15 Pat Name: LISBETH STEELE Department: Room: - Gender: Female Financial Services Manager: KALEY : 1985 Requested By: Natalia Frye Order Number: [id number] Reading MD: Yaqeulin Dupree Measurements Intervals [place] Rate: 103 P: 75 CT: 142 QRS: 74 QRSD: 90 T: 50 QT: 378 QTc: 497 Interpretive Statements SINUS TACHYCARDIA POSSIBLE LEFT ATRIAL ENLARGEMENT ABNORMAL RHYTHM ECG PROLONGED QTC NSTTW abnormalities similar to prior EKG 10/09/19 Electronically Signed on 05-17-2020 8:58:44 EDT by Yaquelin Dupree
== END 2020-05-15 12:27 | disposition home or self-care (01) ==
LOC: M ED 10:14
DX: F15.13 Other stimulant abuse with withdrawal (principal); F90.9 Attention-deficit hyperactivity disorder, unspecified type; Z79.899 Other long term (current) drug therapy; Z88.1 Allergy status to other antibiotic agents; Z88.5 Allergy status to narcotic agent; Z87.891 Personal history of nicotine dependence
CPT/HCPCS: 36415; 80048; 80076; 80307; 84443; 84703; 85027; 93005; 99284; G0480

== ENCOUNTER 2020-05-23 04:43 | Emergency (ER) | payer OTHER ==
[~2020-05-23] VITALS: Ht 152.4 cm; Wt 43.3 kg
[2020-05-23 04:44] VITALS: BP 118/76
[2020-05-23] MEDS ORDERED: XANA2TAB2 PO (05:26)
[2020-05-23] MEDS ORDERED: ALPRAZolam 0.5 MG TAB PO ONE (05:30)
== END 2020-05-23 05:40 | disposition home or self-care (01) ==
LOC: M ED 04:43
DX: Z76.0 Encounter for issue of repeat prescription (principal); F15.23 Other stimulant dependence with withdrawal; F41.1 Generalized anxiety disorder; Z79.899 Other long term (current) drug therapy; Z88.1 Allergy status to other antibiotic agents; Z88.5 Allergy status to narcotic agent

== ENCOUNTER 2020-06-06 17:02 | Emergency (ER) | payer MEDICAID, OTHER ==
[~2020-06-06] VITALS: Ht 152.4 cm; Wt 40.9 kg
[2020-06-06] MEDS ORDERED: ONDANSETRON 4 MG ORAL DISINTEGRATING TAB PO ONE (18:30)
[2020-06-06] MEDS ORDERED: ALPRAZolam 0.5 MG TAB PO ONE ×2 (18:30→19:15)
--- NOTE | 2020-06-06 18:57 | REP ---
INDICATION: cough, sob. COMPARISON: 02/20/2020. TECHNIQUE: SINGLE PORTABLE AP VIEW OF THE CHEST WAS PERFORMED. FINDINGS: THERE IS NO ACUTE INFILTRATE OR PULMONARY EDEMA. LUNGS ARE CLEAR. HEART IS NOT SIGNIFICANTLY ENLARGED. MEDIASTINAL SILHOUETTE IS UNREMARKABLE. THE VISUALIZED OSSEOUS STRUCTURES ARE INTACT. IMPRESSION: NO ACUTE PULMONARY DISEASE. <Electronically signed by Antione Jose > 06/06/20 [id number]
[2020-06-06 19:15] VITALS: BP 112/60
--- NOTE | 2020-06-07 00:02 | ECGEPIP ---
[facility] - ED Test Date: 2020-06-06 Pat Name: LISBETH STEELE Department: Room: - Gender: Female Cyber Legal Advisor: CHINO : 1985 Requested By: JOSE BENTLEY PA-C. Order Number: [id number] Reading MD: Jaison Chapman Measurements Intervals [place] Rate: 69 P: 75 AL: 140 QRS: 83 QRSD: 89 T: 65 QT: 407 QTc: 438 Interpretive Statements SINUS RHYTHM WITH SINUS ARRHYTHMIA NSTTW ABNORMALITY(S) Electronically Signed on 06-07-2020 0:02:43 EST by Jaison Chapman
== END 2020-06-06 19:45 | disposition home or self-care (01) ==
LOC: EDBD 17:02 → M ED 17:02
DX: F15.20 Other stimulant dependence, uncomplicated (principal); R05 Cough; Z79.899 Other long term (current) drug therapy; Z88.0 Allergy status to penicillin; Z88.1 Allergy status to other antibiotic agents; Z88.5 Allergy status to narcotic agent; F17.210 Nicotine dependence, cigarettes, uncomplicated
CPT/HCPCS: 71045; 93005; 99284; Q0162; U0003

== ENCOUNTER 2020-07-27 13:05 | Emergency (ER) | payer OTHER ==
[~2020-07-27] VITALS: Ht 152.4 cm; Wt 44.8 kg
[2020-07-27 13:06] VITALS: BP 128/65
[2020-07-27] MEDS ORDERED: FLUO10CA16 PO (13:20)
[2020-07-27] MEDS ORDERED: CLON1TAB8 (13:20)
[2020-07-27] MEDS ORDERED: BUSP10TA PO (13:20)
== END 2020-07-27 14:50 | disposition home or self-care (01) ==
LOC: M ED 13:05
DX: F19.10 Other psychoactive substance abuse, uncomplicated (principal); Z79.899 Other long term (current) drug therapy; Z88.0 Allergy status to penicillin; Z88.1 Allergy status to other antibiotic agents; Z88.5 Allergy status to narcotic agent

== ENCOUNTER 2021-07-17 16:25 | Emergency (ER) | payer OTHER ==
[~2021-07-17] VITALS: Ht 154.9 cm; Wt 52.3 kg
[~2021-07-17 16:25] MED LIST changes: +BUSP10TA PO; +CLON1TAB8; -FLUO10CA16 PO; +FLUO10CA18 PO
[2021-07-17] MEDS ORDERED: TOPA50TA8 PO (16:38)
[2021-07-17] MEDS ORDERED: NS 1,000 ML IV ONE (19:45)
[2021-07-17 20:25] LABS: AMPHETAMINES LEVEL URINE POSITIVE (NEGATIVE); BARBITURATES URINE NEGATIVE (NEGATIVE); BENZODIAZEPINES URINE POSITIVE (NEGATIVE); CANNABINOIDS URINE POSITIVE (NEGATIVE); COCAINE METABOLITE URINE NEGATIVE (NEGATIVE); METHADONE URINE NEGATIVE (NEGATIVE); OPIATES URINE NEGATIVE (NEGATIVE); PHENCYCLIDINE URINE NEGATIVE (NEGATIVE)
[2021-07-17 20:37] LABS: BASO % 0.7 % (0.0-1.0); EOS # 0.1 10^3/uL (0.0-0.5); EOS % 1.7 % (0.0-3.0); HEMATOCRIT 42.9 % (36.0-47.0); HEMOGLOBIN 14.3 g/dl (12.0-15.5); LYMPH % 19.5 % (24.0-44.0); MEAN CORPUSCULAR HGB CONC 33.3 g/dl (32.0-36.5); MEAN CORPUSCULAR VOLUME 89.9 fl (80.0-96.0); MONO # 0.4 10^3/uL (0.0-0.8); MONO % 7.9 % (2.0-8.0); NEUTROPHILS # 3.7 10^3/uL (1.5-8.5); PLATELET COUNT, AUTOMATED 315 10^3/uL (150-450); RED BLOOD COUNT 4.77 10^6/uL (4.00-5.40); WHITE BLOOD COUNT 5.3 10^3/uL (4.0-10.0)
[2021-07-17 20:58] LABS: BLOOD UREA NITROGEN 15 MG/DL (7-18); CALCIUM LEVEL 8.9 MG/DL (8.5-10.1); CARBON DIOXIDE LEVEL 27 MEQ/L (21-32); CHLORIDE LEVEL 105 MEQ/L (98-107); CREATININE FOR GFR 0.56 MG/DL (0.55-1.30); GLOMERULAR FILTRATION RATE > 60.0 (>60); GLUCOSE, FASTING 91 MG/DL (70-100); SODIUM LEVEL 139 MEQ/L (136-145)
[2021-07-17 21:54] VITALS: BP 145/85
== END 2021-07-17 22:48 | disposition home or self-care (01) ==
LOC: M ED 16:25
DX: R55 Syncope and collapse (principal); F15.10 Other stimulant abuse, uncomplicated; F12.10 Cannabis abuse, uncomplicated; R94.31 Abnormal electrocardiogram [ECG] [EKG]; J45.909 Unspecified asthma, uncomplicated; F90.9 Attention-deficit hyperactivity disorder, unspecified type; F43.10 Post-traumatic stress disorder, unspecified; F41.9 Anxiety disorder, unspecified; Z79.899 Other long term (current) drug therapy; Z88.0 Allergy status to penicillin; Z88.1 Allergy status to other antibiotic agents; Z88.5 Allergy status to narcotic agent; F17.210 Nicotine dependence, cigarettes, uncomplicated

== ENCOUNTER 2023-08-14 04:40 | Emergency (ER) | payer MEDICAID, OTHER ==
[~2023-08-14] VITALS: Ht 154.9 cm; Wt 45.1 kg
[~2023-08-14 04:40] MED LIST changes: +TOPA50TA8 PO
[2023-08-14] MEDS ORDERED: KETOROLAC 30 MG/ML 1ML VIAL IV ONE (06:45)
[2023-08-14] MEDS ORDERED: LIDOCAINE 5% (LIDODERM) PATCH TD ONE (06:45)
[2023-08-14] MEDS ORDERED: KETOROLAC 30 MG/ML 1ML VIAL IM ONE (07:00)
[2023-08-14] MEDS ORDERED: LIDO5DIS41 TOP (07:26)
[2023-08-14] MEDS ORDERED: IBUP-1022 PO (07:26)
[2023-08-14] MEDS ORDERED: ACET325C5 PO (07:26)
[2023-08-14 07:51] VITALS: BP 129/78; TEMP 97.7; O2SAT 100
== END 2023-08-14 08:10 | disposition home or self-care (01) ==
LOC: M ED 04:40
DX: S80.02XA Contusion of left knee, initial encounter (principal); Y92.019 Unspecified place in single-family (private) house as the place of occurrence of the external cause; Y99.9 Unspecified external cause status; Y93.9 Activity, unspecified; W01.0XXA Fall on same level from slipping, tripping and stumbling without subsequent striking against object, initial encounter; F90.0 Attention-deficit hyperactivity disorder, predominantly inattentive type; F43.10 Post-traumatic stress disorder, unspecified; F17.210 Nicotine dependence, cigarettes, uncomplicated; Z88.0 Allergy status to penicillin; Z79.899 Other long term (current) drug therapy; Z79.1 Long term (current) use of non-steroidal anti-inflammatories (NSAID)
CPT/HCPCS: 73564; 96372; 99284; J1885

== ENCOUNTER 2023-08-17 01:25 | Emergency (ER) | payer MEDICAID, OTHER ==
[~2023-08-17] VITALS: Ht 152.4 cm; Wt 45.0 kg
[~2023-08-17 01:25] MED LIST changes: +ACET325C5 PO; +IBUP-1022 PO; +LIDO5DIS41 TOP
[2023-08-17 01:27] VITALS: TEMP 98.3
[2023-08-17] MEDS ORDERED: DALBAVANCIN 1,500 MG in D5W 250 ML IV ONE (03:50)
[2023-08-17] MEDS ORDERED: LIDOCAINE 2% MDV 20ML VIAL SC ONE (03:50)
[2023-08-17 04:19] LABS: BASO % 0.3 % (0.0-1.0); EOS # 0.3 10^3/uL (0.0-0.5); EOS % 3.1 % (0.0-3.0); HEMATOCRIT 38.3 % (36.0-47.0); LYMPH # 1.6 10^3/uL (1.5-5.0); LYMPH % 15.8 % (24.0-44.0); MEAN CORPUSCULAR HEMOGLOBIN 31.3 pg (27.0-33.0); MEAN CORPUSCULAR HGB CONC 33.9 g/dl (32.0-36.5); MEAN CORPUSCULAR VOLUME 92.3 fl (80.0-96.0); MONO # 0.6 10^3/uL (0.0-0.8); MONO % 5.9 % (2.0-8.0); NEUTROPHILS # 7.5 10^3/uL (1.5-8.5); NEUTROPHILS % 74.6 % (36.0-66.0); PLATELET COUNT, AUTOMATED 380 10^3/uL (150-450); RED BLOOD COUNT 4.15 10^6/uL (4.00-5.40)
[2023-08-17 06:00] VITALS: BP 135/74; O2SAT 100
== END 2023-08-17 06:05 | disposition home or self-care (01) ==
LOC: M ED 01:25
DX: L03.012 Cellulitis of left finger (principal); F41.9 Anxiety disorder, unspecified; F43.10 Post-traumatic stress disorder, unspecified; F90.9 Attention-deficit hyperactivity disorder, unspecified type; F17.200 Nicotine dependence, unspecified, uncomplicated; Z88.0 Allergy status to penicillin; Z88.1 Allergy status to other antibiotic agents; Z88.5 Allergy status to narcotic agent; Z79.899 Other long term (current) drug therapy
CPT/HCPCS: 10060; 80047; 85025; 86140; 96365; 99284; J0875

== ENCOUNTER 2025-03-06 15:10 | Emergency (ER) | payer MEDICAID, OTHER ==
[~2025-03-06] VITALS: Ht 162.6 cm; Wt 46.4 kg
[~2025-03-06 15:10] MED LIST changes: +FLUO-290 PO; -FLUO10CA18 PO; -IBUP-1022 PO; +IBUP600T42 PO; +LIDO1ADH93 TOP; -LIDO5DIS41 TOP; +PROZ10CA11 PO; -PROZ10CA7 PO; -PROZ20CA11 PO; +PROZ20CA12 PO
[2025-03-06 17:03] LABS: BASO # 0.0 10^3/uL (0.0-0.2); BASO % 0.8 % (0.0-1.0); EOS # 0.2 10^3/uL (0.0-0.5); EOS % 5.3 % (0.0-3.0); LYMPH # 1.5 10^3/uL (1.5-5.0); LYMPH % 39.1 % (24.0-44.0); MONO # 0.4 10^3/uL (0.0-0.8); MONO % 9.6 % (2.0-8.0); NEUTROPHILS # 1.7 10^3/uL (1.5-8.5); NEUTROPHILS % 44.9 % (36.0-66.0); PLATELET COUNT, AUTOMATED 311 10^3/uL (150-450)
[2025-03-06 17:30] LABS: CALCIUM LEVEL 8.8 MG/DL (8.5-10.1); CARBON DIOXIDE LEVEL 28 MMOL/L (20-31); CHLORIDE LEVEL 105 MMOL/L (98-107); CK-MB VALUE MASS 1.1 NG/ML (<3.6); CPK CREATINE PHOSPHOKINASE 59 U/L (34-145); CREATININE FOR GFR 0.70 MG/DL (0.55-1.30); GLOMERULAR FILTRATION RATE > 90.0 (>60); MB/CK RELATIVE INDEX 1.86 (< OR =4); POTASSIUM SERUM 3.4 MMOL/L (3.5-5.1); SODIUM LEVEL 143 MMOL/L (136-145)
[2025-03-06 17:32] LABS: FREE T4 1.13 NG/DL (0.89-1.76); HCG, SERUM QUALITATIVE NEGATIVE (NEGATIVE)
[2025-03-06 17:33] LABS: ALT/SGPT 15 U/L (7.0-40); AST/SGOT 19 U/L (<34); CALCIUM LEVEL 9.0 MG/DL (8.5-10.1); CARBON DIOXIDE LEVEL 28 MMOL/L (20-31); CHLORIDE LEVEL 107 MMOL/L (98-107); CREATININE FOR GFR 0.72 MG/DL (0.55-1.30); GLOMERULAR FILTRATION RATE > 90.0 (>60); POTASSIUM SERUM 3.5 MMOL/L (3.5-5.1); SODIUM LEVEL 145 MMOL/L (136-145)
[2025-03-06 17:36] LABS: HEPATITIS B SURFACE ANTIBODY POSITIVE (POSITIVE)
[2025-03-06] MEDS: ULIPRISTAL ACETATE 30 MG TAB PO ONE (17:40)
[2025-03-06 18:00] LABS: HIV 1&2 SCREEN NEGATIVE (NEGATIVE)
[2025-03-06 18:08] LABS: HEPATITIS C VIRUS ABY INDEX < 0.02 INDEX (<0.8)
[2025-03-06] MEDS: LIDOCAINE 1% SDV 5 ML VIAL DILUENT ONE (18:15)
[2025-03-06] MEDS: cefTRIAXone 500 MG VIAL IM ONE (18:15)
[2025-03-06] MEDS: AZITHROMYCIN 250 MG TABLET PO ONE (20:51)
[2025-03-06] MEDS ORDERED: CLON1TAB17 PO (21:19)
[2025-03-06] MEDS: clonazePAM 1 MG TAB PO ONE (21:22)
[2025-03-06 22:40] VITALS: BP 125/78; TEMP 98; O2SAT 99
== END 2025-03-06 22:47 | disposition home or self-care (01) ==
LOC: M ED 15:10
DX: T76.21XA Adult sexual abuse, suspected, initial encounter (principal); R07.9 Chest pain, unspecified; F41.9 Anxiety disorder, unspecified; Z88.0 Allergy status to penicillin; Z88.5 Allergy status to narcotic agent; Y07.031 Male partner, former, perpetrator of maltreatment and neglect
CPT/HCPCS: 36415; 71045; 80048; 80053; 82550; 82553; 83690; 84439; 84443; 84484; 84703; 85025; 86706; 86780; 86803; 87340; 87389; 93005; 93041; 94760; 96372; 99285; J0696